=== PATIENT | female | born 1945 | race Caucasian/White ===

== ENCOUNTER 2020-08-27 18:07 | Inpatient (IN) | payer MEDICAID, OTHER ==
[~2020-08-27] VITALS: Ht 165.1 cm; Wt 93.7 kg
[~2020-08-27 18:07] MED LIST: OMNIPAQUE 350 MG/ML, 100ML BOTTLE ONE
--- NOTE | 2020-08-27 18:07 | NUR ---
pt to ct from [facility]. erp assessed en route
--- NOTE | 2020-08-27 18:22 | NUR ---
pg code neuro @ [phone] pre alter 10 min out pg neuro @ [id number]
--- NOTE | 2020-08-27 18:35 | NUR ---
pt to room from ct
--- NOTE | 2020-08-27 18:44 | NUR ---
FIRST CONTACT WITH PT. AT THIS TIME. PT. A&O X 0. BAKER X 4 EQUALLY. PT. WITH EXPRESSIVE APHASIA. FOLLOWS SOME COMMANDS.
[2020-08-27 18:46] LABS: BASOPHILS % (AUTO) 1 % (0-1); EOSINOPHILS % (AUTO) 2 % (1-7); LYMPHOCYTES % (AUTO) 15 % (22-44); MEAN CORPUSCULAR HGB CONC 32.4 g/dL (32.4-35.8); MEAN PLATELET VOLUME 8.4 fL (7.4-10.4); MONOCYTES % (AUTO) 9 % (2-9); NEUTROPHILS % (AUTO) 73 % (42-75); PLATELET COUNT 205 x10^3/uL (130-400); RED BLOOD COUNT 5.61 x10^6/uL (3.82-5.3); RED CELL DISTRIBUTION WIDTH 16.1 % (9.6-15.2)
[2020-08-27 18:47] LABS: MD NO
--- NOTE | 2020-08-27 18:56 | NUR ---
PT. REQUESTING TO USE BATHROOM; MADISON PLACED FOR PT. TO VOID.
[2020-08-27 18:59] LABS: INTERNATIONAL NORMALIZED RATIO 1.05 (0.93-1.1); PROTHROMBIN TIME 11.2 Seconds (9.6-11.5)
--- NOTE | 2020-08-27 20:11 | NUR ---
KRISTINA (daughter) - [phone] WOULD LIKE TO BE CALLED FOR ANY UPDATES ON POC.
[2020-08-27] MEDS ORDERED: SODIUM CHLORIDE 0.9% 1,000 ML IV ONE (20:30)
[2020-08-27] MEDS ORDERED: DOCUSATE 100 MG CAPSULE PO PRN (20:30)
[2020-08-27] MEDS ORDERED: SODIUM CHLORIDE FLUSH 10ML SYR IVF PRN (20:30)
[2020-08-27] MEDS ORDERED: ONDANSETRON 4 MG TABLET PO PRN (20:30)
[2020-08-27] MEDS ORDERED: BISACODYL 10 MG SUPP PR PRN (20:30)
[2020-08-27 21:00] VITALS: BP 145/68
[2020-08-27 21:11] VITALS: BP 162/81
[2020-08-27] MEDS: FUROSEMIDE 20 MG/2 ML IV SCH (21:32)
[2020-08-27] MEDS: ATORVASTATIN 40 MG TABLET PO SCH (21:33)
[2020-08-28 01:12] VITALS: BP 157/78
[2020-08-28 05:16] LABS: BASOPHILS % (AUTO) 1 % (0-1); EOSINOPHILS % (AUTO) 0 % (1-7); LYMPHOCYTES % (AUTO) 9 % (22-44); MEAN CORPUSCULAR HEMOGLOBIN 27.3 pg (27.0-34.8); MEAN CORPUSCULAR HGB CONC 32.7 g/dL (32.4-35.8); MEAN PLATELET VOLUME 8.4 fL (7.4-10.4); MONOCYTES % (AUTO) 6 % (2-9); NEUTROPHILS % (AUTO) 85 % (42-75); PLATELET COUNT 216 x10^3/uL (130-400); RED BLOOD COUNT 5.86 x10^6/uL (3.82-5.3); RED CELL DISTRIBUTION WIDTH 16.3 % (9.6-15.2)
[2020-08-28 05:30] LABS: ALBUMIN 3.4 g/dL (3.4-5.0); ANION GAP 5 mmol/L (5-15); CALCIUM 9.1 mg/dL (8.5-10.1); CHLORIDE 109 mmol/L (98-107)
[2020-08-28 05:32] LABS: MD NO
[2020-08-28 05:35] LABS: ALANINE AMINOTRANSFERASE 31 U/L (12-78); ALKALINE PHOSPHATASE 97 U/L (45-117); BILIRUBIN,TOTAL 1.4 mg/dL (0.2-1.0); CHOL/HDL RATIO 4.5; CHOLESTEROL, TOTAL 218 mg/dL (140-239); CREATININE 0.93 mg/dL (0.55-1.02); HDL CHOL % 22 % (28-40); HDL CHOLESTEROL (DIRECT) 48 mg/dL (40-60); LDL CHOLESTEROL,CALCULATED 146 mg/dL (54-169); TOTAL PROTEIN 7.8 g/dL (6.4-8.2); TRIGLYCERIDES 121 mg/dL (50-200); VLDL CHOLESTEROL 24 mg/dL (0-25)
[2020-08-28] MEDS: ASPIRIN 81 MG TABLET CHEW PO/NG SCH (08:41)
[2020-08-28] MEDS: FUROSEMIDE 20 MG/2 ML IV SCH ×2 (08:41→16:50)
[2020-08-28] MEDS ORDERED: ASPI-1026 PO (09:14)
[2020-08-28] MEDS ORDERED: TORS10TA4 PO (09:14)
[2020-08-28] MEDS ORDERED: ATEN50TA41 PO (09:14)
[2020-08-28 09:22] VITALS: BP 131/87
--- NOTE | 2020-08-28 11:57 | NUR ---
CHOPPED/THIN - ANTHROPOLOGY FACULTY MEMBER PLACED SWALLOW PRECAUTION SIGN AT HOB Addendum: 08/28/20 at 1157 by Nicole SHARMA Amended: Links added.
[2020-08-28 12:28] VITALS: BP 144/96
[2020-08-28] MEDS: ACETAMINOPHEN 650 MG/20.3 ML UDC PO PRN (15:52)
[2020-08-28 18:40] VITALS: BP 148/92
[2020-08-28] MEDS: ATORVASTATIN 40 MG TABLET PO SCH ×2 (21:00→21:33)
[2020-08-29 01:36] VITALS: BP 141/86
[2020-08-29 05:51] LABS: CHLORIDE 105 mmol/L (98-107)
[2020-08-29 05:57] LABS: BASOPHILS % (AUTO) 1 % (0-1); EOSINOPHILS % (AUTO) 1 % (1-7); LYMPHOCYTES % (AUTO) 13 % (22-44); MEAN CORPUSCULAR HEMOGLOBIN 27.6 pg (27.0-34.8); MEAN CORPUSCULAR HGB CONC 33.3 g/dL (32.4-35.8); MEAN PLATELET VOLUME 9.1 fL (7.4-10.4); MONOCYTES % (AUTO) 9 % (2-9); NEUTROPHILS % (AUTO) 76 % (42-75); PLATELET COUNT 233 x10^3/uL (130-400); RED BLOOD COUNT 5.72 x10^6/uL (3.82-5.3); RED CELL DISTRIBUTION WIDTH 15.9 % (9.6-15.2)
[2020-08-29 06:04] LABS: ALANINE AMINOTRANSFERASE 26 U/L (12-78); ALBUMIN 3.4 g/dL (3.4-5.0); ALKALINE PHOSPHATASE 95 U/L (45-117); ANION GAP 9 mmol/L (5-15); BILIRUBIN,TOTAL 2.8 mg/dL (0.2-1.0); CALCIUM 9.1 mg/dL (8.5-10.1); CREATININE 1.05 mg/dL (0.55-1.02); TOTAL PROTEIN 7.5 g/dL (6.4-8.2)
[2020-08-29 06:05] LABS: MD NO
[2020-08-29 06:55] VITALS: BP 139/98
[2020-08-29] MEDS: FUROSEMIDE 20 MG/2 ML IV SCH ×3 (07:30→17:08)
[2020-08-29] MEDS: ASPIRIN 81 MG TABLET CHEW PO/NG SCH ×2 (09:00→09:41)
[2020-08-29] MEDS: ATENOLOL 50 MG TABLET PO SCH ×2 (09:00→09:40)
[2020-08-29 12:59] VITALS: BP 122/89
[2020-08-29] MEDS: SODIUM CHLORIDE 0.9% 1,000 ML IV SCH (15:00)
[2020-08-29 19:59] VITALS: BP 135/94
[2020-08-29] MEDS: ATORVASTATIN 40 MG TABLET PO SCH (20:55)
[2020-08-30 01:28] VITALS: BP 140/91
[2020-08-30] MEDS: SODIUM CHLORIDE 0.9% 1,000 ML IV SCH (05:26)
[2020-08-30 07:19] VITALS: BP 138/87
[2020-08-30 07:21] LABS: ANION GAP 6 mmol/L (5-15); CALCIUM 9.1 mg/dL (8.5-10.1); CHLORIDE 106 mmol/L (98-107); CREATININE 1.05 mg/dL (0.55-1.02)
[2020-08-30 07:23] LABS: BASOPHILS % (AUTO) 1 % (0-1); EOSINOPHILS % (AUTO) 2 % (1-7); LYMPHOCYTES % (AUTO) 18 % (22-44); MEAN CORPUSCULAR HEMOGLOBIN 27.4 pg (27.0-34.8); MEAN CORPUSCULAR HGB CONC 32.8 g/dL (32.4-35.8); MEAN PLATELET VOLUME 8.7 fL (7.4-10.4); MONOCYTES % (AUTO) 14 % (2-9); NEUTROPHILS % (AUTO) 66 % (42-75); PLATELET COUNT 217 x10^3/uL (130-400); RED BLOOD COUNT 5.84 x10^6/uL (3.82-5.3); RED CELL DISTRIBUTION WIDTH 16.2 % (9.6-15.2)
[2020-08-30 07:24] LABS: MD NO
[2020-08-30] MEDS ORDERED: POTASSIUM CHLORIDE 20 MEQ in SODIUM CHLORIDE 0.9% 250 ML IV ONE (08:00)
[2020-08-30] MEDS: FUROSEMIDE 20 MG/2 ML IV SCH ×2 (08:31→16:04)
[2020-08-30] MEDS: MULTIVITS,STRESS FORMULA 1 TABLET PO SCH (08:33)
[2020-08-30] MEDS: ATENOLOL 50 MG TABLET PO SCH (08:33)
[2020-08-30] MEDS: ZINC SULFATE 220 MG CAPSULE PO SCH (08:34)
[2020-08-30] MEDS: CHOLECALCIFEROL 5,000u TAB PO SCH (08:34)
[2020-08-30] MEDS: ASCORBIC ACID 500 MG TABLET PO SCH ×2 (08:42→16:04)
[2020-08-30 14:38] VITALS: BP 127/87
[2020-08-30] MEDS: ACETAMINOPHEN 650 MG/20.3 ML UDC PO PRN (16:03)
[2020-08-30 19:05] VITALS: BP 121/82
[2020-08-30] MEDS: ATORVASTATIN 40 MG TABLET PO SCH (21:42)
[2020-08-31 01:53] VITALS: BP 116/75
[2020-08-31] MEDS: SODIUM CHLORIDE 0.9% 1,000 ML IV SCH ×2 (02:15→15:20)
[2020-08-31 06:12] LABS: BASOPHILS % (AUTO) 1 % (0-1); EOSINOPHILS % (AUTO) 4 % (1-7); LYMPHOCYTES % (AUTO) 17 % (22-44); MEAN CORPUSCULAR HEMOGLOBIN 27.4 pg (27.0-34.8); MEAN PLATELET VOLUME 8.7 fL (7.4-10.4); MONOCYTES % (AUTO) 11 % (2-9); NEUTROPHILS % (AUTO) 66 % (42-75); PLATELET COUNT 205 x10^3/uL (130-400); RED CELL DISTRIBUTION WIDTH 16.2 % (9.6-15.2)
[2020-08-31 06:13] LABS: MD NO
[2020-08-31 06:22] LABS: ALBUMIN 3.1 g/dL (3.4-5.0); ANION GAP 6 mmol/L (5-15); CALCIUM 8.9 mg/dL (8.5-10.1); CHLORIDE 108 mmol/L (98-107); CREATININE 0.88 mg/dL (0.55-1.02)
[2020-08-31 07:18] VITALS: BP 137/97
[2020-08-31] MEDS: MULTIVITS,STRESS FORMULA 1 TABLET PO SCH (10:49)
[2020-08-31] MEDS: ZINC SULFATE 220 MG CAPSULE PO SCH (10:50)
[2020-08-31] MEDS: ATENOLOL 50 MG TABLET PO SCH (10:50)
[2020-08-31] MEDS: CHOLECALCIFEROL 5,000u TAB PO SCH (10:50)
[2020-08-31] MEDS: ASCORBIC ACID 500 MG TABLET PO SCH ×2 (10:50→17:36)
[2020-08-31] MEDS: FUROSEMIDE 20 MG/2 ML IV SCH ×2 (10:50→17:36)
[2020-08-31 14:47] VITALS: BP 132/87
[2020-08-31] MEDS: POTASSIUM CHLORIDE 20 MEQ TAB.ER.PRT PO SCH (17:36)
[2020-08-31] MEDS: ACETAMINOPHEN 650 MG/20.3 ML UDC PO PRN (17:36)
[2020-08-31 19:59] VITALS: BP 138/90
[2020-08-31] MEDS: ATORVASTATIN 40 MG TABLET PO SCH (21:04)
[2020-09-01 01:25] VITALS: BP 127/84
[2020-09-01] MEDS: SODIUM CHLORIDE 0.9% 1,000 ML IV SCH ×2 (04:40→13:06)
[2020-09-01] MEDS: FUROSEMIDE 20 MG/2 ML IV SCH ×2 (07:30→17:16)
[2020-09-01 07:32] VITALS: BP 110/69
[2020-09-01] MEDS: ATENOLOL 50 MG TABLET PO SCH (09:39)
[2020-09-01] MEDS: ASCORBIC ACID 500 MG TABLET PO SCH ×2 (09:42→17:15)
[2020-09-01] MEDS: POTASSIUM CHLORIDE 20 MEQ TAB.ER.PRT PO SCH ×2 (09:42→17:16)
[2020-09-01] MEDS: ZINC SULFATE 220 MG CAPSULE PO SCH (09:43)
[2020-09-01] MEDS: MULTIVITS,STRESS FORMULA 1 TABLET PO SCH (09:43)
[2020-09-01] MEDS: CHOLECALCIFEROL 5,000u TAB PO SCH (09:43)
[2020-09-01 12:11] VITALS: BP 110/79
[2020-09-01 19:09] VITALS: BP 108/82
[2020-09-01] MEDS: ATORVASTATIN 40 MG TABLET PO SCH (21:17)
[2020-09-02 01:18] VITALS: BP 117/82
[2020-09-02] MEDS: SODIUM CHLORIDE 0.9% 1,000 ML IV SCH ×2 (02:32→17:17)
[2020-09-02] MEDS: FUROSEMIDE 20 MG/2 ML IV SCH ×2 (07:28→17:16)
[2020-09-02 07:47] VITALS: BP 104/67
[2020-09-02] MEDS: POTASSIUM CHLORIDE 20 MEQ TAB.ER.PRT PO SCH ×2 (09:02→17:16)
[2020-09-02] MEDS: ZINC SULFATE 220 MG CAPSULE PO SCH (09:02)
[2020-09-02] MEDS: ATENOLOL 50 MG TABLET PO SCH (09:03)
[2020-09-02] MEDS: MULTIVITS,STRESS FORMULA 1 TABLET PO SCH (09:03)
[2020-09-02] MEDS: ASCORBIC ACID 500 MG TABLET PO SCH ×2 (09:03→17:16)
[2020-09-02] MEDS: CHOLECALCIFEROL 5,000u TAB PO SCH (09:03)
[2020-09-02 12:19] VITALS: BP 130/85
[2020-09-02 19:07] VITALS: BP 134/87
[2020-09-02] MEDS: ATORVASTATIN 40 MG TABLET PO SCH (20:55)
[2020-09-03 01:49] VITALS: BP 140/76
[2020-09-03] MEDS: SODIUM CHLORIDE 0.9% 1,000 ML IV SCH ×2 (06:27→19:30)
[2020-09-03 06:49] VITALS: BP 138/108
[2020-09-03] MEDS: FUROSEMIDE 20 MG/2 ML IV SCH ×2 (07:34→17:06)
[2020-09-03] MEDS: ASCORBIC ACID 500 MG TABLET PO SCH ×2 (08:00→17:07)
[2020-09-03] MEDS: POTASSIUM CHLORIDE 20 MEQ TAB.ER.PRT PO SCH (08:00)
[2020-09-03] MEDS: MULTIVITS,STRESS FORMULA 1 TABLET PO SCH (09:00)
[2020-09-03] MEDS: ZINC SULFATE 220 MG CAPSULE PO SCH (09:00)
[2020-09-03] MEDS: CHOLECALCIFEROL 5,000u TAB PO SCH (09:00)
[2020-09-03 14:00] VITALS: BP 128/87
[2020-09-03] MEDS: ATENOLOL 50 MG TABLET PO SCH (17:06)
[2020-09-03 18:42] VITALS: BP 121/82
[2020-09-03] MEDS: ATORVASTATIN 40 MG TABLET PO SCH (21:00)
[2020-09-04 01:39] VITALS: BP 128/88
[2020-09-04 06:57] VITALS: BP 133/100
[2020-09-04] MEDS: CHOLECALCIFEROL 5,000u TAB PO SCH (09:20)
[2020-09-04] MEDS: MULTIVITS,STRESS FORMULA 1 TABLET PO SCH (09:21)
[2020-09-04] MEDS: ATENOLOL 50 MG TABLET PO SCH (09:21)
[2020-09-04] MEDS: SODIUM CHLORIDE 0.9% 1,000 ML IV SCH ×2 (09:21→23:04)
[2020-09-04] MEDS: ASCORBIC ACID 500 MG TABLET PO SCH ×2 (09:21→18:27)
[2020-09-04] MEDS: ZINC SULFATE 220 MG CAPSULE PO SCH ×2 (09:21→09:32)
[2020-09-04 10:12] LABS: ANION GAP 6 mmol/L (5-15); CALCIUM 8.9 mg/dL (8.5-10.1); CHLORIDE 113 mmol/L (98-107); CREATININE 0.82 mg/dL (0.55-1.02)
[2020-09-04 12:15] VITALS: BP 163/84
[2020-09-04 18:26] VITALS: BP 156/78
[2020-09-04] MEDS: ATORVASTATIN 40 MG TABLET PO SCH (20:55)
[2020-09-05] MEDS: ACETAMINOPHEN 650 MG/20.3 ML UDC PO PRN ×2 (00:47→17:04)
[2020-09-05 00:52] VITALS: BP 149/73
[2020-09-05] MEDS: TORSEMIDE 5 MG TAB PO SCH (08:43)
[2020-09-05] MEDS: ATENOLOL 50 MG TABLET PO SCH (08:43)
[2020-09-05] MEDS: MULTIVITS,STRESS FORMULA 1 TABLET PO SCH (08:44)
[2020-09-05] MEDS: CHOLECALCIFEROL 5,000u TAB PO SCH (08:44)
[2020-09-05 08:55] VITALS: BP 145/99
[2020-09-05 12:11] VITALS: BP 100/66
[2020-09-05] MEDS: SODIUM CHLORIDE 0.9% 1,000 ML IV SCH (12:34)
[2020-09-05 17:15] VITALS: BP 179/79
[2020-09-05] MEDS ORDERED: FUROSEMIDE 40 MG/4 ML IV ONE (17:30)
[2020-09-05 19:25] VITALS: BP 136/89
[2020-09-05] MEDS: ATORVASTATIN 40 MG TABLET PO SCH (21:30)
[2020-09-05] MEDS: MELATONIN 5 MG TABLET PO PRN (21:36)
[2020-09-06 00:53] VITALS: BP 129/80
[2020-09-06 07:36] VITALS: BP 136/93
[2020-09-06] MEDS: CHOLECALCIFEROL 5,000u TAB PO SCH (09:02)
[2020-09-06] MEDS: TORSEMIDE 5 MG TAB PO SCH (09:03)
[2020-09-06] MEDS: MULTIVITS,STRESS FORMULA 1 TABLET PO SCH (09:03)
[2020-09-06] MEDS: ATENOLOL 50 MG TABLET PO SCH (09:04)
[2020-09-06 12:25] VITALS: BP 130/88
[2020-09-06 18:46] VITALS: BP 126/82
[2020-09-06] MEDS: MELATONIN 5 MG TABLET PO PRN (20:29)
[2020-09-06] MEDS: ATORVASTATIN 40 MG TABLET PO SCH (20:29)
[2020-09-07 01:36] VITALS: BP 133/86
[2020-09-07 07:12] VITALS: BP 124/79
[2020-09-07 08:15] LABS: BASOPHILS % (AUTO) 1 % (0-1); EOSINOPHILS % (AUTO) 1 % (1-7); LYMPHOCYTES % (AUTO) 11 % (22-44); MEAN CORPUSCULAR HEMOGLOBIN 27.5 pg (27.0-34.8); MEAN CORPUSCULAR HGB CONC 33.1 g/dL (32.4-35.8); MEAN PLATELET VOLUME 8.7 fL (7.4-10.4); MONOCYTES % (AUTO) 11 % (2-9); NEUTROPHILS % (AUTO) 76 % (42-75); PLATELET COUNT 231 x10^3/uL (130-400); RED BLOOD COUNT 5.78 x10^6/uL (3.82-5.3)
[2020-09-07 08:17] LABS: MD NO
[2020-09-07] MEDS: ATENOLOL 50 MG TABLET PO SCH (08:22)
[2020-09-07] MEDS: MULTIVITS,STRESS FORMULA 1 TABLET PO SCH (08:22)
[2020-09-07] MEDS: CHOLECALCIFEROL 5,000u TAB PO SCH (08:22)
[2020-09-07] MEDS: TORSEMIDE 5 MG TAB PO SCH (08:22)
[2020-09-07 08:26] LABS: ANION GAP 7 mmol/L (5-15); CALCIUM 9.4 mg/dL (8.5-10.1); CHLORIDE 109 mmol/L (98-107)
[2020-09-07 12:08] VITALS: BP 132/82
[2020-09-07] MEDS ORDERED: POTASSIUM CHLORIDE 20 MEQ TAB.ER.PRT PO ONE (15:00)
[2020-09-07 20:14] VITALS: BP 138/89
[2020-09-07] MEDS: ATORVASTATIN 40 MG TABLET PO SCH (22:01)
[2020-09-08 00:57] VITALS: BP 116/80
[2020-09-08 06:49] VITALS: BP 126/82
[2020-09-08] MEDS: ATENOLOL 50 MG TABLET PO SCH (08:17)
[2020-09-08] MEDS: CHOLECALCIFEROL 5,000u TAB PO SCH (08:17)
[2020-09-08] MEDS: MULTIVITS,STRESS FORMULA 1 TABLET PO SCH (08:17)
[2020-09-08] MEDS: TORSEMIDE 5 MG TAB PO SCH ×2 (08:18→21:37)
[2020-09-08 12:17] VITALS: BP 122/79
[2020-09-08] MEDS ORDERED: ASPIRIN 81 MG TABLET EC PO ONE (15:04)
[2020-09-08] MEDS ORDERED: POTASSIUM CHLORIDE 20 MEQ TAB.ER.PRT PO ONE (15:08)
[2020-09-08 19:00] VITALS: BP 120/84
[2020-09-08] MEDS: MELATONIN 5 MG TABLET PO PRN (21:37)
[2020-09-08] MEDS: ATORVASTATIN 40 MG TABLET PO SCH (21:37)
[2020-09-09 00:36] VITALS: BP 132/86
[2020-09-09 06:14] LABS: CHLORIDE 106 mmol/L (98-107)
[2020-09-09 06:22] LABS: ANION GAP 7 mmol/L (5-15); CALCIUM 9.3 mg/dL (8.5-10.1); CREATININE 1.03 mg/dL (0.55-1.02)
[2020-09-09] MEDS ORDERED: POTASSIUM CHLORIDE 40 MEQ in SODIUM CHLORIDE 0.9% 500 ML IV ONE (07:00)
[2020-09-09 07:56] VITALS: BP 161/121
[2020-09-09] MEDS: MULTIVITS,STRESS FORMULA 1 TABLET PO SCH (08:05)
[2020-09-09] MEDS: POTASSIUM CHLORIDE 20 MEQ TAB.ER.PRT PO SCH (08:05)
[2020-09-09] MEDS: ATENOLOL 50 MG TABLET PO SCH (08:05)
[2020-09-09] MEDS: CHOLECALCIFEROL 5,000u TAB PO SCH (08:06)
[2020-09-09] MEDS: ASPIRIN 81 MG TABLET EC PO SCH (08:06)
[2020-09-09] MEDS: TORSEMIDE 5 MG TAB PO SCH ×2 (08:07→21:33)
[2020-09-09] MEDS ORDERED: LABETALOL 5MG/ML, 20ML IVPush PRN (09:00)
[2020-09-09 09:06] VITALS: BP 105/62
[2020-09-09] MEDS: ACETAMINOPHEN 650 MG/20.3 ML UDC PO PRN (11:28)
[2020-09-09 12:00] VITALS: BP 136/87
[2020-09-09 19:37] VITALS: BP 107/78
[2020-09-09] MEDS: ATORVASTATIN 40 MG TABLET PO SCH (21:33)
[2020-09-10 00:14] VITALS: BP 123/72
[2020-09-10 05:10] LABS: ANION GAP 4 mmol/L (5-15); CALCIUM 9.8 mg/dL (8.5-10.1); CHLORIDE 107 mmol/L (98-107); CREATININE 1.08 mg/dL (0.55-1.02)
[2020-09-10] MEDS: ASPIRIN 81 MG TABLET EC PO SCH (05:55)
[2020-09-10 06:05] VITALS: BP 105/72
[2020-09-10] MEDS: CHOLECALCIFEROL 5,000u TAB PO SCH (09:00)
[2020-09-10] MEDS: TORSEMIDE 5 MG TAB PO SCH ×2 (09:20→20:52)
[2020-09-10] MEDS: MULTIVITS,STRESS FORMULA 1 TABLET PO SCH (09:21)
[2020-09-10] MEDS: POTASSIUM CHLORIDE 20 MEQ TAB.ER.PRT PO SCH (09:21)
[2020-09-10] MEDS: ATENOLOL 50 MG TABLET PO SCH (09:21)
[2020-09-10 11:12] VITALS: BP 108/84
[2020-09-10 19:18] VITALS: BP 102/75
[2020-09-10] MEDS: ATORVASTATIN 40 MG TABLET PO SCH (20:52)
[2020-09-11 02:00] VITALS: BP 112/84
[2020-09-11] MEDS: ASPIRIN 81 MG TABLET EC PO SCH (05:10)
[2020-09-11 07:22] VITALS: BP 111/68
[2020-09-11] MEDS: POTASSIUM CHLORIDE 20 MEQ TAB.ER.PRT PO SCH (08:42)
[2020-09-11] MEDS: ATENOLOL 50 MG TABLET PO SCH (08:42)
[2020-09-11] MEDS: CHOLECALCIFEROL 5,000u TAB PO SCH (08:42)
[2020-09-11] MEDS: MULTIVITS,STRESS FORMULA 1 TABLET PO SCH (08:43)
[2020-09-11] MEDS: TORSEMIDE 5 MG TAB PO SCH ×2 (11:24→21:32)
[2020-09-11 11:31] VITALS: BP 109/63
[2020-09-11 18:33] VITALS: BP 114/68
[2020-09-11] MEDS: ATORVASTATIN 40 MG TABLET PO SCH (21:32)
[2020-09-12 02:00] VITALS: BP 119/74
[2020-09-12] MEDS: ASPIRIN 81 MG TABLET EC PO SCH (05:26)
[2020-09-12 07:31] VITALS: BP 127/91
[2020-09-12] MEDS: POTASSIUM CHLORIDE 20 MEQ TAB.ER.PRT PO SCH (08:40)
[2020-09-12] MEDS: CHOLECALCIFEROL 5,000u TAB PO SCH (08:41)
[2020-09-12] MEDS: MULTIVITS,STRESS FORMULA 1 TABLET PO SCH (08:41)
[2020-09-12] MEDS: ATENOLOL 50 MG TABLET PO SCH (08:41)
[2020-09-12] MEDS: TORSEMIDE 5 MG TAB PO SCH ×2 (10:57→21:53)
[2020-09-12 12:40] VITALS: BP 126/71
[2020-09-12 18:47] VITALS: BP 127/83
[2020-09-12] MEDS: ATORVASTATIN 40 MG TABLET PO SCH (21:52)
[2020-09-13 00:23] VITALS: BP 122/81
[2020-09-13] MEDS: ASPIRIN 81 MG TABLET EC PO SCH (06:10)
[2020-09-13 07:53] VITALS: BP 124/86
[2020-09-13] MEDS: MULTIVITS,STRESS FORMULA 1 TABLET PO SCH ×2 (09:38→09:51)
[2020-09-13] MEDS: CHOLECALCIFEROL 5,000u TAB PO SCH ×2 (09:38→09:51)
[2020-09-13] MEDS: POTASSIUM CHLORIDE 20 MEQ TAB.ER.PRT PO SCH ×2 (09:38→09:51)
[2020-09-13] MEDS: ATENOLOL 50 MG TABLET PO SCH ×2 (09:38→09:51)
[2020-09-13] MEDS: TORSEMIDE 5 MG TAB PO SCH ×2 (09:51→20:56)
[2020-09-13 14:48] VITALS: BP 108/76
[2020-09-13 19:07] VITALS: BP 100/72
[2020-09-13 19:50] VITALS: BP 98/63
[2020-09-13] MEDS: ATORVASTATIN 40 MG TABLET PO SCH (20:56)
[2020-09-14 00:27] VITALS: BP 112/68
[2020-09-14] MEDS: ASPIRIN 81 MG TABLET EC PO SCH (06:28)
[2020-09-14 07:39] VITALS: BP 96/59
[2020-09-14] MEDS: POTASSIUM CHLORIDE 20 MEQ TAB.ER.PRT PO SCH (09:48)
[2020-09-14] MEDS: CHOLECALCIFEROL 5,000u TAB PO SCH (09:48)
[2020-09-14] MEDS: MULTIVITS,STRESS FORMULA 1 TABLET PO SCH (09:48)
[2020-09-14] MEDS: ATENOLOL 50 MG TABLET PO SCH (10:01)
[2020-09-14] MEDS: TORSEMIDE 5 MG TAB PO SCH ×2 (10:01→21:38)
[2020-09-14] MEDS: POLYETHYLENE GLYCOL 17 GM PACKET PO PRN (14:24)
[2020-09-14 15:18] VITALS: BP 105/72
[2020-09-14 19:10] VITALS: BP 128/70
[2020-09-14] MEDS: ATORVASTATIN 40 MG TABLET PO SCH ×2 (21:00→21:38)
[2020-09-15 00:45] VITALS: BP 115/83
[2020-09-15] MEDS: ASPIRIN 81 MG TABLET EC PO SCH (06:01)
[2020-09-15 07:17] VITALS: BP 100/70
[2020-09-15] MEDS: TORSEMIDE 5 MG TAB PO SCH ×2 (09:30→21:50)
[2020-09-15] MEDS: ATENOLOL 50 MG TABLET PO SCH (09:30)
[2020-09-15] MEDS: MULTIVITS,STRESS FORMULA 1 TABLET PO SCH (09:30)
[2020-09-15] MEDS: CHOLECALCIFEROL 5,000u TAB PO SCH (09:31)
[2020-09-15] MEDS: POTASSIUM CHLORIDE 20 MEQ TAB.ER.PRT PO SCH (09:31)
[2020-09-15 14:22] VITALS: BP 106/76
[2020-09-15 19:19] VITALS: BP 122/72
[2020-09-15] MEDS: ATORVASTATIN 40 MG TABLET PO SCH (21:50)
[2020-09-16 00:39] VITALS: BP 115/70
[2020-09-16] MEDS: ASPIRIN 81 MG TABLET EC PO SCH (05:56)
[2020-09-16 06:35] VITALS: BP 133/83
[2020-09-16] MEDS: POTASSIUM CHLORIDE 20 MEQ TAB.ER.PRT PO SCH (09:45)
[2020-09-16] MEDS: ATENOLOL 50 MG TABLET PO SCH (09:45)
[2020-09-16] MEDS: MULTIVITS,STRESS FORMULA 1 TABLET PO SCH (09:45)
[2020-09-16] MEDS: CHOLECALCIFEROL 5,000u TAB PO SCH (09:45)
[2020-09-16] MEDS: TORSEMIDE 5 MG TAB PO SCH ×2 (09:45→22:00)
[2020-09-16 12:37] VITALS: BP 95/72
[2020-09-16 19:42] VITALS: BP 109/78
[2020-09-16] MEDS: ATORVASTATIN 40 MG TABLET PO SCH (21:48)
[2020-09-17 01:17] VITALS: BP 105/74
[2020-09-17] MEDS: ASPIRIN 81 MG TABLET EC PO SCH (05:35)
[2020-09-17 08:35] VITALS: BP 118/82
[2020-09-17] MEDS: POTASSIUM CHLORIDE 20 MEQ TAB.ER.PRT PO SCH (08:57)
[2020-09-17] MEDS: MULTIVITS,STRESS FORMULA 1 TABLET PO SCH (08:57)
[2020-09-17] MEDS: CHOLECALCIFEROL 5,000u TAB PO SCH (08:57)
[2020-09-17] MEDS: ATENOLOL 50 MG TABLET PO SCH (08:58)
[2020-09-17] MEDS: TORSEMIDE 5 MG TAB PO SCH ×2 (10:03→21:38)
[2020-09-17 12:44] VITALS: BP 123/92
[2020-09-17 21:35] VITALS: BP 105/72
[2020-09-17] MEDS: ATORVASTATIN 40 MG TABLET PO SCH (21:38)
[2020-09-18 02:27] VITALS: BP 102/70
[2020-09-18] MEDS: ACETAMINOPHEN 650 MG/20.3 ML UDC PO PRN ×2 (03:27→09:32)
[2020-09-18] MEDS: ASPIRIN 81 MG TABLET EC PO SCH (05:39)
[2020-09-18] MEDS: CHOLECALCIFEROL 5,000u TAB PO SCH (08:44)
[2020-09-18] MEDS: POTASSIUM CHLORIDE 20 MEQ TAB.ER.PRT PO SCH (08:44)
[2020-09-18] MEDS: MULTIVITS,STRESS FORMULA 1 TABLET PO SCH (08:44)
[2020-09-18] MEDS: ATENOLOL 50 MG TABLET PO SCH (08:45)
[2020-09-18 08:46] VITALS: BP 108/82
[2020-09-18] MEDS: TORSEMIDE 5 MG TAB PO SCH ×2 (09:32→20:16)
[2020-09-18 12:08] VITALS: BP 120/90
[2020-09-18 19:00] VITALS: BP 124/84
[2020-09-18] MEDS: ATORVASTATIN 40 MG TABLET PO SCH (20:16)
[2020-09-19 00:45] VITALS: BP 116/80
[2020-09-19] MEDS: ASPIRIN 81 MG TABLET EC PO SCH ×2 (05:46→06:24)
[2020-09-19 06:25] VITALS: BP 101/73
[2020-09-19] MEDS: POTASSIUM CHLORIDE 20 MEQ TAB.ER.PRT PO SCH (08:50)
[2020-09-19] MEDS: CHOLECALCIFEROL 5,000u TAB PO SCH (08:50)
[2020-09-19] MEDS: TORSEMIDE 5 MG TAB PO SCH ×2 (08:50→20:42)
[2020-09-19] MEDS: ATENOLOL 50 MG TABLET PO SCH (08:51)
[2020-09-19] MEDS: MULTIVITS,STRESS FORMULA 1 TABLET PO SCH (08:51)
[2020-09-19 13:29] VITALS: BP 96/75
[2020-09-19 18:49] VITALS: BP 102/66
[2020-09-19] MEDS: ATORVASTATIN 40 MG TABLET PO SCH (20:42)
[2020-09-20 01:38] VITALS: BP 109/73
[2020-09-20] MEDS: ASPIRIN 81 MG TABLET EC PO SCH (05:33)
[2020-09-20] MEDS: POLYETHYLENE GLYCOL 17 GM PACKET PO PRN (05:34)
[2020-09-20 06:13] VITALS: BP 92/67
[2020-09-20] MEDS: CHOLECALCIFEROL 5,000u TAB PO SCH (09:00)
[2020-09-20] MEDS: MULTIVITS,STRESS FORMULA 1 TABLET PO SCH (09:01)
[2020-09-20] MEDS: ATENOLOL 50 MG TABLET PO SCH (09:01)
[2020-09-20] MEDS: POTASSIUM CHLORIDE 20 MEQ TAB.ER.PRT PO SCH (09:01)
[2020-09-20] MEDS: TORSEMIDE 5 MG TAB PO SCH ×2 (09:01→21:14)
[2020-09-20 11:46] VITALS: BP 139/75
[2020-09-20 18:33] VITALS: BP 104/59
[2020-09-20] MEDS: ATORVASTATIN 40 MG TABLET PO SCH (21:14)
[2020-09-21 01:05] VITALS: BP 110/64
[2020-09-21] MEDS: ASPIRIN 81 MG TABLET EC PO SCH (05:55)
[2020-09-21 07:13] VITALS: BP 110/64
[2020-09-21] MEDS: POTASSIUM CHLORIDE 20 MEQ TAB.ER.PRT PO SCH (09:07)
[2020-09-21] MEDS: TORSEMIDE 5 MG TAB PO SCH ×2 (09:07→21:36)
[2020-09-21] MEDS: CHOLECALCIFEROL 5,000u TAB PO SCH (09:07)
[2020-09-21] MEDS: ATENOLOL 50 MG TABLET PO SCH (09:08)
[2020-09-21] MEDS: MULTIVITS,STRESS FORMULA 1 TABLET PO SCH (09:08)
[2020-09-21 12:56] VITALS: BP 116/67
[2020-09-21 19:05] VITALS: BP 103/72
[2020-09-21] MEDS: ATORVASTATIN 40 MG TABLET PO SCH (21:36)
[2020-09-22 01:53] VITALS: BP 118/82
[2020-09-22] MEDS: ASPIRIN 81 MG TABLET EC PO SCH (05:03)
[2020-09-22 07:07] VITALS: BP 109/67
[2020-09-22] MEDS: POTASSIUM CHLORIDE 20 MEQ TAB.ER.PRT PO SCH (08:41)
[2020-09-22] MEDS: MULTIVITS,STRESS FORMULA 1 TABLET PO SCH (08:41)
[2020-09-22] MEDS: CHOLECALCIFEROL 5,000u TAB PO SCH (08:41)
[2020-09-22] MEDS: TORSEMIDE 5 MG TAB PO SCH ×2 (08:41→20:25)
[2020-09-22] MEDS: ATENOLOL 50 MG TABLET PO SCH (08:42)
[2020-09-22] MEDS: APIXABAN 5 MG TABLET PO SCH ×2 (10:31→20:25)
[2020-09-22 12:31] VITALS: BP 121/64
[2020-09-22 19:30] VITALS: BP 110/62
[2020-09-22] MEDS: ATORVASTATIN 40 MG TABLET PO SCH (20:25)
[2020-09-23 00:34] VITALS: BP 126/65
[2020-09-23 07:38] VITALS: BP 99/63
[2020-09-23] MEDS: MULTIVITS,STRESS FORMULA 1 TABLET PO SCH (08:34)
[2020-09-23] MEDS: ATENOLOL 50 MG TABLET PO SCH (08:34)
[2020-09-23] MEDS: TORSEMIDE 5 MG TAB PO SCH ×2 (08:34→20:11)
[2020-09-23] MEDS: CHOLECALCIFEROL 5,000u TAB PO SCH (08:34)
[2020-09-23] MEDS: APIXABAN 5 MG TABLET PO SCH ×2 (08:34→20:11)
[2020-09-23] MEDS: POTASSIUM CHLORIDE 20 MEQ TAB.ER.PRT PO SCH (08:36)
[2020-09-23 14:25] VITALS: BP 109/68
[2020-09-23 19:23] VITALS: BP 108/76
[2020-09-23] MEDS: ATORVASTATIN 40 MG TABLET PO SCH (20:11)
[2020-09-24 01:11] VITALS: BP 107/66
[2020-09-24 06:36] VITALS: BP 106/76
[2020-09-24] MEDS: CHOLECALCIFEROL 5,000u TAB PO SCH (09:00)
[2020-09-24 09:45] LABS: BASOPHILS % (AUTO) 1 % (0-1); EOSINOPHILS % (AUTO) 4 % (1-7); LYMPHOCYTES % (AUTO) 28 % (22-44); MEAN CORPUSCULAR HEMOGLOBIN 27.5 pg (27.0-34.8); MEAN CORPUSCULAR HGB CONC 33.1 g/dL (32.4-35.8); MONOCYTES % (AUTO) 12 % (2-9); NEUTROPHILS % (AUTO) 56 % (42-75); PLATELET COUNT 206 x10^3/uL (130-400); RED BLOOD COUNT 6.28 x10^6/uL (3.82-5.3); RED CELL DISTRIBUTION WIDTH 16.3 % (9.6-15.2)
[2020-09-24] MEDS: APIXABAN 5 MG TABLET PO SCH ×2 (09:50→20:09)
[2020-09-24] MEDS: TORSEMIDE 5 MG TAB PO SCH (09:50)
[2020-09-24] MEDS: ATENOLOL 50 MG TABLET PO SCH (09:50)
[2020-09-24] MEDS: MULTIVITS,STRESS FORMULA 1 TABLET PO SCH (09:50)
[2020-09-24] MEDS: POTASSIUM CHLORIDE 20 MEQ TAB.ER.PRT PO SCH (09:50)
[2020-09-24 09:53] LABS: INTERNATIONAL NORMALIZED RATIO 1.16 (0.93-1.1); PROTHROMBIN TIME 12.4 Seconds (9.6-11.5)
[2020-09-24 09:56] LABS: ALBUMIN 3.5 g/dL (3.4-5.0); ANION GAP 8 mmol/L (5-15); CALCIUM 10.1 mg/dL (8.5-10.1); CHLORIDE 106 mmol/L (98-107)
[2020-09-24 10:01] LABS: ALANINE AMINOTRANSFERASE 32 U/L (12-78); ALKALINE PHOSPHATASE 105 U/L (45-117); BILIRUBIN,TOTAL 1.4 mg/dL (0.2-1.0); CREATININE 1.36 mg/dL (0.55-1.02); TOTAL PROTEIN 7.8 g/dL (6.4-8.2)
[2020-09-24] MEDS: ACETAMINOPHEN 650 MG/20.3 ML UDC PO PRN (10:18)
[2020-09-24 10:28] LABS: MD SCAN
[2020-09-24 12:17] VITALS: BP 104/76
[2020-09-24 18:24] VITALS: BP 104/74
[2020-09-24] MEDS: ATORVASTATIN 40 MG TABLET PO SCH (20:09)
[2020-09-25 00:49] VITALS: BP 94/73
[2020-09-25] MEDS: ACETAMINOPHEN 650 MG/20.3 ML UDC PO PRN (02:43)
[2020-09-25 06:24] VITALS: BP 112/81
[2020-09-25] MEDS ORDERED: TORSEMIDE 5 MG TAB PO SCH (09:00)
[2020-09-25] MEDS: MULTIVITS,STRESS FORMULA 1 TABLET PO SCH (09:24)
[2020-09-25] MEDS: ATENOLOL 50 MG TABLET PO SCH (09:24)
[2020-09-25] MEDS: APIXABAN 5 MG TABLET PO SCH ×2 (09:24→20:41)
[2020-09-25] MEDS: CHOLECALCIFEROL 5,000u TAB PO SCH (09:24)
[2020-09-25 13:55] VITALS: BP 123/65
[2020-09-25 18:35] VITALS: BP 103/72
[2020-09-25] MEDS: ATORVASTATIN 40 MG TABLET PO SCH (20:41)
[2020-09-26 01:18] VITALS: BP 126/85
[2020-09-26 05:39] LABS: BASOPHILS % (AUTO) 1 % (0-1); EOSINOPHILS % (AUTO) 4 % (1-7); LYMPHOCYTES % (AUTO) 23 % (22-44); MEAN PLATELET VOLUME 9.3 fL (7.4-10.4); MONOCYTES % (AUTO) 13 % (2-9); NEUTROPHILS % (AUTO) 60 % (42-75); PLATELET COUNT 192 x10^3/uL (130-400)
[2020-09-26 05:52] LABS: CHLORIDE 107 mmol/L (98-107)
[2020-09-26 05:56] LABS: MD NO
[2020-09-26 06:00] LABS: ANION GAP 8 mmol/L (5-15); CALCIUM 9.4 mg/dL (8.5-10.1); CREATININE 1.12 mg/dL (0.55-1.02)
[2020-09-26 09:38] VITALS: BP 112/82
[2020-09-26] MEDS: APIXABAN 5 MG TABLET PO SCH ×2 (09:59→21:01)
[2020-09-26] MEDS: ATENOLOL 50 MG TABLET PO SCH (09:59)
[2020-09-26] MEDS: MULTIVITS,STRESS FORMULA 1 TABLET PO SCH (09:59)
[2020-09-26] MEDS: CHOLECALCIFEROL 5,000u TAB PO SCH (10:00)
[2020-09-26 14:30] VITALS: BP 110/86
[2020-09-26 19:06] VITALS: BP 126/89
[2020-09-26] MEDS: ATORVASTATIN 40 MG TABLET PO SCH (21:02)
[2020-09-27 00:18] VITALS: BP 109/79
[2020-09-27 07:41] VITALS: BP 108/74
[2020-09-27] MEDS: CHOLECALCIFEROL 5,000u TAB PO SCH (08:20)
[2020-09-27] MEDS: MULTIVITS,STRESS FORMULA 1 TABLET PO SCH (08:20)
[2020-09-27] MEDS: APIXABAN 5 MG TABLET PO SCH (08:20)
[2020-09-27] MEDS: ATENOLOL 50 MG TABLET PO SCH (08:20)
[2020-09-27] MEDS ORDERED: CHOL500045 PO (09:16)
[2020-09-27] MEDS ORDERED: ATOR40TA78 PO (09:16)
[2020-09-27] MEDS ORDERED: MULT1TAB76 PO (09:16)
[2020-09-27] MEDS ORDERED: APIX5TAB PO (09:16)
[2020-09-27] MEDS: ACETAMINOPHEN 650 MG/20.3 ML UDC PO PRN (09:20)
[2020-09-27 10:20] LABS: ANION GAP 10 mmol/L (5-15); CALCIUM 10.3 mg/dL (8.5-10.1); CHLORIDE 107 mmol/L (98-107); CREATININE 1.25 mg/dL (0.55-1.02)
== END 2020-09-27 11:30 | DRG 45 ==
LOC: ED 18:12 → EDIP 20:22 → 4WST 20:37
PROVIDERS: ADMIT Internal Medicine; ATTEND Family Medicine
DX: I63.532 Cerebral infarction due to unspecified occlusion or stenosis of left posterior cerebral artery (principal); I61.8 Other nontraumatic intracerebral hemorrhage; I50.23 Acute on chronic systolic (congestive) heart failure; D68.69 Other thrombophilia; E66.01 Morbid (severe) obesity due to excess calories; I27.20 Pulmonary hypertension, unspecified; Z20.822 Contact with and (suspected) exposure to COVID-19; I48.20 Chronic atrial fibrillation, unspecified; I48.92 Unspecified atrial flutter; I34.1 Nonrheumatic mitral (valve) prolapse; S00.81XA Abrasion of other part of head, initial encounter; D64.9 Anemia, unspecified; E78.5 Hyperlipidemia, unspecified; F91.9 Conduct disorder, unspecified; I11.0 Hypertensive heart disease with heart failure; Z90.49 Acquired absence of other specified parts of digestive tract; Q21.1 Atrial septal defect; Z79.01 Long term (current) use of anticoagulants; Z79.899 Other long term (current) drug therapy; Z79.891 Long term (current) use of opiate analgesic
CPT/HCPCS: 36415; 70450; 70496; 70498; 70551; 71045; 80047; 80048; 80053; 80061; 80069; 83735; 83880; 84100; 85025; 85610; 85730; 87635; 93005; 93306; 95816; 99291; G0378; J1940; J3480; Q0162; Q9967; 92522-GN; J7030; J7040; J7050